=== PATIENT | female | born 2000 | race African-American/Black ===

== ENCOUNTER 2022-08-17 19:27 | Emergency (ER) | payer MEDICAID, OTHER, SELFPAY | END 2022-08-17 20:40 | disposition home or self-care (01) | LOC: CSHERS 19:27 | DX: O20.0 Threatened abortion (principal); Z3A.08 8 weeks gestation of pregnancy | CPT/HCPCS: 99283 ==

== ENCOUNTER 2023-02-10 18:13 | Emergency (ER) | payer OTHER ==
[2023-02-10 18:56] LABS: Bilirubin Neg (Negative); Blood, Urine 10 (Negative); Clarity Clear (Clear); Glucose, Urine (Dipstick) Normal (Negative); Ketone, Urine 50 mg/dL (Negative); Leukocyte 500 (Negative); Nitrite Negative (Negative); Protein, Urine (Dipstick) 30 mg/dl (Neg-Trace)
[2023-02-10 18:58] LABS: Pregnancy Test - Urine (BHCG) POSITIVE (Negative); Pregu Control Background? CLEAR/WHITE (CLR/WHITE); Pregu Control Bar Appear? YES (CONTROL BAR)
[2023-02-10 19:04] LABS: RBC/HPF 0-3 HPF (0-3)
[2023-02-10 19:05] LABS: Bacteria/HPF 3+ HPF (None Seen); CAUTI Indications for Culture Pregnancy; Mucous/LPF 4+ LPF (<2+); Urine Culture Reflex Yes Yes
[2023-02-10 20:03] LABS: #Monocytes 0.2 10x3/uL (0.0-1.1); #Neutrophils 4.6 10x3/uL (1.5-8.4); %Basophils 0.2 % (0.0-2.0); %Eosinophils 0.3 % (0.0-6.0); %Monocytes 3.2 % (0.0-10.0); %Neutrophils 69.1 % (40.0-75.0); Hematocrit 29.3 % (34.9-44.5); Hemoglobin 9.1 g/dL (12.0-15.5); Mean Corpuscular HGB CONC 31.1 g/dL (32.0-36.0); Mean Corpuscular Hemoglobin 23.7 pg (27.0-33.0); Mean Corpuscular Volume 76.3 fl (81.6-98.3); Mean Platelet Volume 8.9 fl (7.4-10.4); Platelet Count 419 10x3/uL (150-450); RBC Distribution Width 16.3 % (11.5-14.5); Red Blood Cell (RBC) Count 3.84 10x6/uL (3.90-5.03); White Blood Cell (WBC) Count 6.6 10x3/uL (3.5-10.5)
== END 2023-02-10 22:02 | disposition home or self-care (01) ==
LOC: CSHERS 18:13
DX: O23.42 Unspecified infection of urinary tract in pregnancy, second trimester (principal); O99.012 Anemia complicating pregnancy, second trimester; Z3A.17 17 weeks gestation of pregnancy
CPT/HCPCS: 36415; 76815; 81001; 81025; 85025; 86900; 86901; 87086

== ENCOUNTER 2023-04-23 16:16 | Inpatient (IN) | payer MEDICAID, OTHER, SELFPAY ==
[2023-04-23 16:33] VITALS: BMI 21.7
[2023-04-23] MEDS: Lactated Ringer's 1,000 ML IV SCH ×2 (17:00→18:21)
[2023-04-23] MEDS ORDERED: hydrALAZINE 20 MG/ML VIAL SLOW IVP PRN ×2 (17:20→19:30)
[2023-04-23 17:45] LABS: Bilirubin Neg (Negative); Blood, Urine Negative (Negative); Clarity Slightly Cloudy (Clear); Glucose, Urine (Dipstick) Normal (Negative); Ketone, Urine Negative (Negative); Leukocyte 500 (Negative); Nitrite Negative (Negative); Protein, Urine (Dipstick) 30 mg/dl (Neg-Trace); pH, Urine 6.5 (5.0-9.0)
[2023-04-23 17:50] LABS: #Monocytes 0.2 10x3/uL (0.0-1.1); #Neutrophils 4.5 10x3/uL (1.5-8.4); %Basophils 0.1 % (0.0-2.0); %Eosinophils 0.3 % (0.0-6.0); %Lymphocytes 31.4 % (18.0-47.0); %Neutrophils 64.9 % (40.0-75.0); Hematocrit 27.6 % (34.9-44.5); Hemoglobin 8.2 g/dL (12.0-15.5); Mean Corpuscular HGB CONC 29.7 g/dL (32.0-36.0); Mean Corpuscular Hemoglobin 21.7 pg (27.0-33.0); Mean Platelet Volume 9.3 fl (7.4-10.4); Platelet Count 415 10x3/uL (150-450); RBC Distribution Width 16.3 % (11.5-14.5); Red Blood Cell (RBC) Count 3.78 10x6/uL (3.90-5.03)
[2023-04-23 18:11] LABS: ALT (SGPT) 7 U/L (8-55); AST (SGOT) 16 U/L (5-34); Albumin 3.7 g/dL (3.5-5.0); Alkaline Phosphatase 59 U/L (40-110); Anion Gap 16 mmol/L (10-20); BUN (Urea Nitrogen) 6 mg/dL (7.0-18.7); Bilirubin, Total 0.8 mg/dL (0.2-1.2); Calc. Creatinine Clearance 126 mL/min (70-130); Calcium 8.7 mg/dL (7.8-10.44); Carbon Dioxide 17 mmol/L (22-29); Chloride 107 mmol/L (98-107); Estimated GFR 130; Globulin 3.1 g/dL (2.4-3.5); Glucose 82 mg/dL (70-105); Potassium 3.7 mmol/L (3.5-5.1); Protein, Total 6.8 g/dL (6.0-8.3); Sodium 136 mmol/L (136-145)
[2023-04-23 18:20] LABS: CAUTI Indications for Culture Pregnancy
[2023-04-23 18:23] LABS: Bacteria/HPF 3+ HPF (None Seen); Mucous/LPF 3+ LPF (<2+)
[2023-04-23 18:25] LABS: Yeast-Budding 1+ HPF (None Seen); Yeast-Hyphae Rare HPF (None Seen)
[2023-04-23 18:27] LABS: Urine Culture Reflex Yes Yes
[2023-04-23] MEDS ORDERED: cefTRIAXone\\ROCEPHIN 1 GM in Sodium Chloride 0.9% 100 ML IVPB SCH (19:00)
[2023-04-23 19:13] LABS: Fetal Membranes Rupture RUPTURE DETECTED (No Rupture)
[2023-04-23] MEDS ORDERED: Oxytocin 30 units/NS 500 ML 500 ML IV SCH (19:30)
[2023-04-23] MEDS ORDERED: Promethazine HCl 25 MG/ML VIAL IM PRN (19:30)
[2023-04-23] MEDS ORDERED: Azithromycin 250 MG TAB PO SCH (19:45)
[2023-04-23] MEDS ORDERED: Betamet Acet/Betamet Na Ph 30 MG/5 ML VIAL IM SCH (19:45)
[2023-04-23] MEDS: Ampicillin 2 GM in Sodium Chloride 0.9% 100 ML IVPB SCH (19:46)
[2023-04-23] MEDS ORDERED: Magnesium Sulfate 20 gm/500 ml 20 GM/500 ML BAG IVPB SCH (20:15)
[2023-04-23 20:30] LABS: Syphilis Antibody Nonreactive (Nonreactive); Syphilis Antibody Index 0.07 S/CO (<1.00 Non-Reactive)
[2023-04-23 20:33] LABS: HBSAg Index 0.18 S/CO (0-0.99); Hep B Surf Ag - L&D Non-Reactive S/CO (NonReactive)
[2023-04-23 20:54] LABS: #Monocytes 0.2 10x3/uL (0.0-1.1); #Neutrophils 5.2 10x3/uL (1.5-8.4); %Basophils 0.1 % (0.0-2.0); %Eosinophils 0.1 % (0.0-6.0); %Monocytes 2.9 % (0.0-10.0); %Neutrophils 68.6 % (40.0-75.0); Hematocrit 26.5 % (34.9-44.5); Hemoglobin 7.8 g/dL (12.0-15.5); Mean Corpuscular HGB CONC 29.4 g/dL (32.0-36.0); Mean Corpuscular Hemoglobin 21.8 pg (27.0-33.0); Mean Corpuscular Volume 74.2 fl (81.6-98.3); Platelet Count 374 10x3/uL (150-450); RBC Distribution Width 16.3 % (11.5-14.5); Red Blood Cell (RBC) Count 3.57 10x6/uL (3.90-5.03); White Blood Cell (WBC) Count 7.6 10x3/uL (3.5-10.5)
[2023-04-24] MEDS: Ampicillin 2 GM in Sodium Chloride 0.9% 100 ML IVPB SCH ×4 (01:39→19:46)
[2023-04-24] MEDS ORDERED: Fluconazole 100 MG TAB PO SCH ×2 (08:00→14:00)
[2023-04-24 12:09] LABS: Fetal Membranes Rupture RUPTURE DETECTED (No Rupture)
[2023-04-24 14:03] LABS: Chlamydia by PCR, Vaginal Swab Not Detected (NotDetected); GC by PCR, Vaginal Swab Not Detected (NotDetected); Tric.vaginalis PCR,Vaginal Sw Not Detected (NotDetected)
[2023-04-24] MEDS: Lactated Ringer's 1,000 ML IV SCH ×2 (15:21→21:15)
[2023-04-24] MEDS: Ferrous Sulfate 325 MG TAB PO SCH ×2 (15:21→16:56)
[2023-04-24] MEDS ORDERED: Cyclobenzaprine 10 MG TAB PO SCH (19:00)
[2023-04-24] MEDS ORDERED: Betamet Acet/Betamet Na Ph 30 MG/5 ML VIAL IM SCH (20:00)
[2023-04-25] MEDS ORDERED: fentaNYL 50 mcg/mL 1 mL Vial SLOW IVP PRN (00:10)
[2023-04-25] MEDS: fentaNYL 50 mcg/mL 1 mL Vial SLOW IVP PRN ×2 (00:54→18:01)
[2023-04-25] MEDS: Ampicillin 2 GM in Sodium Chloride 0.9% 100 ML IVPB SCH ×4 (03:17→23:06)
[2023-04-25] MEDS: Ferrous Gluconate 324 MG TAB PO SCH (09:35)
[2023-04-25] MEDS: Lactated Ringer's 1,000 ML IV SCH (09:36)
[2023-04-25] MEDS ORDERED: Ampicillin 2 GM VIAL ONE (22:57)
[2023-04-26] MEDS ORDERED: fentaNYL/Ropivacaine Epidural 100 ML ONE (07:31)
[2023-04-26] MEDS: AMOXicillin 250 MG CAP PO SCH (18:21)
[2023-04-26] MEDS: Ferrous Gluconate 324 MG TAB PO SCH (21:37)
[2023-04-27] MEDS: AMOXicillin 250 MG CAP PO SCH ×5 (02:22→21:24)
[2023-04-27] MEDS: Ferrous Gluconate 324 MG TAB PO SCH ×3 (07:11→21:24)
[2023-04-27] MEDS: Lactated Ringer's 1,000 ML IV SCH (07:11)
[2023-04-28] MEDS: AMOXicillin 250 MG CAP PO SCH ×3 (09:27→21:12)
[2023-04-28] MEDS: Ferrous Gluconate 324 MG TAB PO SCH ×2 (09:27→21:12)
[2023-04-29] MEDS: Ferrous Gluconate 324 MG TAB PO SCH ×2 (09:22→20:36)
[2023-04-29] MEDS: AMOXicillin 250 MG CAP PO SCH ×3 (09:22→20:36)
[2023-04-29] MEDS ORDERED: Lactated Ringer's 1,000 ML IV SCH (18:15)
[2023-04-29 18:47] LABS: #Eosinphils 0.1 10x3/uL (0.0-0.5); #Monocytes 0.6 10x3/uL (0.0-1.1); #Neutrophils 8.8 10x3/uL (1.5-8.4); %Basophils 0.2 % (0.0-2.0); %Eosinophils 0.4 % (0.0-6.0); %Lymphocytes 24.6 % (18.0-47.0); %Monocytes 4.6 % (0.0-10.0); %Neutrophils 68.4 % (40.0-75.0); Hematocrit 27.4 % (34.9-44.5); Mean Corpuscular HGB CONC 29.2 g/dL (32.0-36.0); Mean Corpuscular Hemoglobin 21.6 pg (27.0-33.0); Mean Corpuscular Volume 73.9 fl (81.6-98.3); Mean Platelet Volume 9.2 fl (7.4-10.4); Platelet Count 351 10x3/uL (150-450); RBC Distribution Width 17.3 % (11.5-14.5); Red Blood Cell (RBC) Count 3.71 10x6/uL (3.90-5.03); White Blood Cell (WBC) Count 12.8 10x3/uL (3.5-10.5)
[2023-04-29 18:48] LABS: ALT (SGPT) Less than 7 U/L (8-55); AST (SGOT) 12 U/L (5-34); Albumin 3.2 g/dL (3.5-5.0); Alkaline Phosphatase 52 U/L (40-110); Anion Gap 14 mmol/L (10-20); BUN (Urea Nitrogen) 6 mg/dL (7.0-18.7); Bilirubin, Total 0.6 mg/dL (0.2-1.2); Calc. Creatinine Clearance 143 mL/min (70-130); Calcium 8.4 mg/dL (7.8-10.44); Carbon Dioxide 20 mmol/L (22-29); Chloride 103 mmol/L (98-107); Estimated GFR 134; Glucose 98 mg/dL (70-105); Potassium 3.2 mmol/L (3.5-5.1); Protein, Total 6.2 g/dL (6.0-8.3); Sodium 134 mmol/L (136-145)
[2023-04-29] MEDS ORDERED: Potassium Chloride 20 MEQ TAB PO SCH (20:00)
[2023-04-30 04:34] LABS: Anion Gap 14 mmol/L (10-20); BUN (Urea Nitrogen) 4 mg/dL (7.0-18.7); Calc. Creatinine Clearance 140 mL/min (70-130); Calcium 8.6 mg/dL (7.8-10.44); Carbon Dioxide 19 mmol/L (22-29); Chloride 107 mmol/L (98-107); Estimated GFR 133; Glucose 86 mg/dL (70-105); Sodium 136 mmol/L (136-145)
[2023-04-30] MEDS: Ferrous Gluconate 324 MG TAB PO SCH ×2 (09:18→22:33)
[2023-04-30] MEDS: AMOXicillin 250 MG CAP PO SCH ×3 (09:18→22:33)
[2023-05-01] MEDS ORDERED: AMOXicillin 250 MG CAP PO SCH ×2 (08:00→09:00)
[2023-05-01] MEDS: Ferrous Gluconate 324 MG TAB PO SCH ×2 (10:13→22:56)
[2023-05-02] MEDS ORDERED: Acetaminophen 325 MG TAB PO PRN (02:02)
[2023-05-02] MEDS: Cyclobenzaprine 10 MG TAB PO PRN (02:05)
[2023-05-02] MEDS: Ferrous Gluconate 324 MG TAB PO SCH ×2 (09:52→21:38)
[2023-05-03] MEDS: Ferrous Gluconate 324 MG TAB PO SCH ×2 (08:26→22:45)
[2023-05-03] MEDS ORDERED: Docusate Calcium (SURFAK) 240 MG CAP PO PRN (14:21)
[2023-05-03] MEDS: Docusate 100 MG CAP PO PRN (15:03)
[2023-05-04 08:05] LABS: #Monocytes 0.5 10x3/uL (0.0-1.1); %Basophils 0.1 % (0.0-2.0); %Eosinophils 0.2 % (0.0-6.0); %Lymphocytes 22.8 % (18.0-47.0); %Monocytes 3.6 % (0.0-10.0); %Neutrophils 72.3 % (40.0-75.0); Hematocrit 27.8 % (34.9-44.5); Hemoglobin 8.1 g/dL (12.0-15.5); Mean Corpuscular HGB CONC 29.1 g/dL (32.0-36.0); Mean Corpuscular Volume 75.5 fl (81.6-98.3); Mean Platelet Volume 9.5 fl (7.4-10.4); Platelet Count 307 10x3/uL (150-450); RBC Distribution Width 19.3 % (11.5-14.5); Red Blood Cell (RBC) Count 3.68 10x6/uL (3.90-5.03); White Blood Cell (WBC) Count 12.4 10x3/uL (3.5-10.5)
[2023-05-04 08:30] LABS: ALT (SGPT) Less than 7 U/L (8-55); AST (SGOT) 15 U/L (5-34); Albumin 3.1 g/dL (3.5-5.0); Alkaline Phosphatase 53 U/L (40-110); Anion Gap 14 mmol/L (10-20); BUN (Urea Nitrogen) 8 mg/dL (7.0-18.7); Bilirubin, Total 0.6 mg/dL (0.2-1.2); Calc. Creatinine Clearance 138 mL/min (70-130); Calcium 8.5 mg/dL (7.8-10.44); Carbon Dioxide 20 mmol/L (22-29); Chloride 105 mmol/L (98-107); Estimated GFR 133; Globulin 3.1 g/dL (2.4-3.5); Glucose 82 mg/dL (70-105); Protein, Total 6.2 g/dL (6.0-8.3); Sodium 135 mmol/L (136-145)
[2023-05-04] MEDS: Ferrous Gluconate 324 MG TAB PO SCH ×2 (09:00→20:09)
[2023-05-04 22:11] LABS: Hemoglobin A1c 4.8 % (4.0-6.0)
[2023-05-05] MEDS: Docusate 100 MG CAP PO PRN (10:25)
[2023-05-05] MEDS: Ferrous Gluconate 324 MG TAB PO SCH ×2 (10:25→21:24)
[2023-05-06] MEDS: Acetaminophen 500 MG TAB PO PRN ×2 (00:12→22:42)
[2023-05-06] MEDS ORDERED: Lactated Ringer's 1,000 ML IV SCH (00:30)
[2023-05-06 04:33] LABS: #Monocytes 0.3 10x3/uL (0.0-1.1); #Neutrophils 6.8 10x3/uL (1.5-8.4); %Basophils 0.1 % (0.0-2.0); %Eosinophils 0.2 % (0.0-6.0); %Lymphocytes 24.2 % (18.0-47.0); %Monocytes 3.6 % (0.0-10.0); %Neutrophils 71.3 % (40.0-75.0); Hematocrit 24.8 % (34.9-44.5); Hemoglobin 7.6 g/dL (12.0-15.5); Mean Corpuscular HGB CONC 30.6 g/dL (32.0-36.0); Mean Corpuscular Hemoglobin 23.4 pg (27.0-33.0); Mean Corpuscular Volume 76.3 fl (81.6-98.3); Mean Platelet Volume 9.8 fl (7.4-10.4); Platelet Count 293 10x3/uL (150-450); RBC Distribution Width 20.2 % (11.5-14.5); Red Blood Cell (RBC) Count 3.25 10x6/uL (3.90-5.03); White Blood Cell (WBC) Count 9.6 10x3/uL (3.5-10.5)
[2023-05-06] MEDS: Ferrous Gluconate 324 MG TAB PO SCH ×2 (08:35→21:56)
[2023-05-06] MEDS: Cyclobenzaprine 10 MG TAB PO PRN (22:42)
[2023-05-07] MEDS ORDERED: Fluconazole 100 MG TAB PO SCH (07:00)
[2023-05-07 07:13] LABS: Hemoglobin A2 2.1 % (1.8-3.2); Hemoglobin F 0 % (0.0-2.0)
[2023-05-07] MEDS: Ferrous Gluconate 324 MG TAB PO SCH ×2 (08:00→21:39)
[2023-05-07 16:42] LABS: Group B Streptococcus by PCR Not Detected (NotDetected)
[2023-05-08] MEDS: Ferrous Gluconate 324 MG TAB PO SCH ×2 (09:05→21:38)
[2023-05-09] MEDS: Ferrous Gluconate 324 MG TAB PO SCH ×2 (17:55→21:55)
[2023-05-10] MEDS: Ferrous Gluconate 324 MG TAB PO SCH ×2 (13:10→21:20)
[2023-05-11] MEDS: Docusate 100 MG CAP PO PRN (09:21)
[2023-05-11] MEDS: Ferrous Gluconate 324 MG TAB PO SCH ×2 (09:21→21:38)
[2023-05-12] MEDS: Betamet Acet/Betamet Na Ph 30 MG/5 ML VIAL IM SCH (09:53)
[2023-05-12] MEDS: Ferrous Gluconate 324 MG TAB PO SCH ×2 (09:54→21:33)
[2023-05-12] MEDS: Iron Sucrose Complex 200 MG in Sodium Chloride 0.9% 100 ML IVPB SCH (09:54)
[2023-05-13] MEDS ORDERED: Betamet Acet/Betamet Na Ph 30 MG/5 ML VIAL IM SCH (09:15)
[2023-05-13] MEDS: Iron Sucrose Complex 200 MG in Sodium Chloride 0.9% 100 ML IVPB SCH (09:19)
[2023-05-13] MEDS: Betamet Acet/Betamet Na Ph 30 MG/5 ML VIAL IM SCH (10:23)
[2023-05-13] MEDS: Ferrous Gluconate 324 MG TAB PO SCH ×2 (10:37→22:22)
[2023-05-14] MEDS: Cyclobenzaprine 10 MG TAB PO PRN (01:14)
[2023-05-14] MEDS: Acetaminophen 500 MG TAB PO PRN ×2 (01:15→19:17)
[2023-05-14] MEDS: Iron Sucrose Complex 200 MG in Sodium Chloride 0.9% 100 ML IVPB SCH (10:17)
[2023-05-14] MEDS: Ferrous Gluconate 324 MG TAB PO SCH ×2 (10:24→19:17)
[2023-05-14 10:26] LABS: #Monocytes 0.6 10x3/uL (0.0-1.1); #Neutrophils 9.4 10x3/uL (1.5-8.4); %Basophils 0.1 % (0.0-2.0); %Lymphocytes 14.9 % (18.0-47.0); %Monocytes 4.8 % (0.0-10.0); %Neutrophils 78.5 % (40.0-75.0); Hematocrit 28.6 % (34.9-44.5); Hemoglobin 8.5 g/dL (12.0-15.5); Mean Corpuscular HGB CONC 29.7 g/dL (32.0-36.0); Mean Corpuscular Hemoglobin 24.1 pg (27.0-33.0); Mean Corpuscular Volume 81.3 fl (81.6-98.3); Mean Platelet Volume 9.7 fl (7.4-10.4); Platelet Count 348 10x3/uL (150-450); RBC Distribution Width 25.7 % (11.5-14.5); Red Blood Cell (RBC) Count 3.52 10x6/uL (3.90-5.03)
[2023-05-14 10:54] LABS: Anisocytosis MODERATE=16-30 cells (100X) (0-5/hpf); Poikilocytosis SLIGHT = 6-15 cells (100X) (0-5/hpf)
[2023-05-14 10:55] LABS: Ovalocytes SLIGHT = 2-5 cells (100X) (0-1/hpf)
[2023-05-14] MEDS: Ondansetron PF 4 MG/2 ML Vial IVP PRN (19:17)
[2023-05-15] MEDS: Ferrous Gluconate 324 MG TAB PO SCH ×2 (11:07→21:29)
[2023-05-16] MEDS: Ferrous Gluconate 324 MG TAB PO SCH ×2 (11:08→21:15)
[2023-05-16] MEDS: Docusate 100 MG CAP PO PRN (11:09)
[2023-05-17] MEDS: Ferrous Gluconate 324 MG TAB PO SCH ×2 (09:10→20:39)
[2023-05-17] MEDS: Ondansetron PF 4 MG/2 ML Vial IVP PRN (19:20)
[2023-05-18] MEDS: Ferrous Gluconate 324 MG TAB PO SCH ×2 (07:53→20:55)
[2023-05-18 15:38] LABS: Hemoglobin A2 2.2 % (1.8-3.2); Hemoglobin F 0 % (0.0-2.0)
[2023-05-19] MEDS: Ferrous Gluconate 324 MG TAB PO SCH ×2 (08:37→21:07)
[2023-05-20] MEDS: Ferrous Gluconate 324 MG TAB PO SCH ×2 (09:10→21:04)
[2023-05-21] MEDS: Ferrous Gluconate 324 MG TAB PO SCH ×2 (09:31→21:48)
[2023-05-21] MEDS: Docusate 100 MG CAP PO PRN (09:31)
[2023-05-22] MEDS: Cyclobenzaprine 10 MG TAB PO PRN (00:45)
[2023-05-22] MEDS: Ferrous Gluconate 324 MG TAB PO SCH ×2 (08:29→22:02)
[2023-05-22 08:46] LABS: #Monocytes 0.3 10x3/uL (0.0-1.1); #Neutrophils 3.4 10x3/uL (1.5-8.4); %Eosinophils 0.2 % (0.0-6.0); %Lymphocytes 37.9 % (18.0-47.0); %Monocytes 4.2 % (0.0-10.0); %Neutrophils 57.2 % (40.0-75.0); Hematocrit 30.3 % (34.9-44.5); Hemoglobin 9.2 g/dL (12.0-15.5); Mean Corpuscular HGB CONC 30.4 g/dL (32.0-36.0); Mean Corpuscular Hemoglobin 25.4 pg (27.0-33.0); Mean Corpuscular Volume 83.7 fl (81.6-98.3); Mean Platelet Volume 9.3 fl (7.4-10.4); Platelet Count 279 10x3/uL (150-450); RBC Distribution Width 28.2 % (11.5-14.5); Red Blood Cell (RBC) Count 3.62 10x6/uL (3.90-5.03)
[2023-05-22 09:14] LABS: Anisocytosis SLIGHT = 6-15 cells (100X) (0-5/hpf); Hypochromia SLIGHT = 6-15 cells (100X) (0-5/hpf); Poikilocytosis SLIGHT = 6-15 cells (100X) (0-5/hpf)
[2023-05-22 09:15] LABS: Platelet Adequacy Comment Appears Adequate
[2023-05-23] MEDS: Ferrous Gluconate 324 MG TAB PO SCH (10:31)
[2023-05-23 12:20] VITALS: TEMP 98.3
[2023-05-23 15:39] VITALS: BP 101/68
== END 2023-05-23 20:45 | disposition left against medical advice (07) | DRG 832 ==
LOC: CSHLD/OP 16:16 → CSHLD 19:30 → EEVIPCON 19:30 → CSHANTE 04-24 14:50 → CSHLD 04-25 03:11 → CSHANTE 04-26 21:45
PROVIDERS: ADMIT Obstetrics & Gynecology; ATTEND Obstetrics & Gynecology
DX: O42.90 Premature rupture of membranes, unspecified as to length of time between rupture and onset of labor, unspecified weeks of gestation (principal); N39.0 Urinary tract infection, site not specified; O23.42 Unspecified infection of urinary tract in pregnancy, second trimester; O98.812 Other maternal infectious and parasitic diseases complicating pregnancy, second trimester; Z3A.27 27 weeks gestation of pregnancy; O99.012 Anemia complicating pregnancy, second trimester; O32.1XX0 Maternal care for breech presentation, not applicable or unspecified; O99.891 Other specified diseases and conditions complicating pregnancy; R00.0 Tachycardia, unspecified; O99.282 Endocrine, nutritional and metabolic diseases complicating pregnancy, second trimester; E87.6 Hypokalemia; B37.31 Acute candidiasis of vulva and vagina
CPT/HCPCS: 36415; 71045; 76815; 76816; 76819; 80048; 80053; 81001; 82950; 83021; 83036; 84112; 85025; 86780; 86850; 86900; 86901; 87086; 87340; 87480; 87491; 87510; 87591; 87653; 87660; 87661; 93005; 93010; 99285; J0290; J0696; J0702; J1650; J1756; J2405; J3010; J3475; J3490; J7120

== ENCOUNTER 2023-06-02 15:43 | Day surgery (SDC) | payer MEDICAID, SELFPAY ==
[2023-06-02 16:29] VITALS: BMI 22.1
[2023-06-02] MEDS ORDERED: hydrALAZINE 20 MG/ML VIAL SLOW IVP PRN ×2 (16:59→19:06)
[2023-06-02 17:45] LABS: Fetal Membranes Rupture No Membranes Rupture (No Rupture)
[2023-06-02] MEDS ORDERED: Acetaminophen 500 MG TAB PO PRN ×2 (19:05→19:19)
[2023-06-02] MEDS ORDERED: Ondansetron PF 4 MG/2 ML Vial IVP PRN (19:06)
[2023-06-02] MEDS ORDERED: Promethazine HCl 25 MG/ML VIAL IM PRN (19:06)
[2023-06-02] MEDS ORDERED: Oxytocin 30 units/NS 500 ML 500 ML IV SCH (19:15)
[2023-06-02] MEDS ORDERED: Lactated Ringer's 1,000 ML IV SCH (19:15)
[2023-06-02 19:42] LABS: Hematocrit 35.2 % (34.9-44.5); Hemoglobin 11.3 g/dL (12.0-15.5); Mean Corpuscular HGB CONC 32.1 g/dL (32.0-36.0); Mean Corpuscular Hemoglobin 27.2 pg (27.0-33.0); Mean Corpuscular Volume 84.8 fl (81.6-98.3); Mean Platelet Volume 9.6 fl (7.4-10.4); Platelet Count 273 10x3/uL (150-450); Red Blood Cell (RBC) Count 4.15 10x6/uL (3.90-5.03); White Blood Cell (WBC) Count 8.4 10x3/uL (3.5-10.5)
[2023-06-02 19:56] LABS: HBSAg Index 0.16 S/CO (0-0.99); Hep B Surf Ag - L&D Non-Reactive S/CO (NonReactive)
[2023-06-02 19:58] LABS: Syphilis Antibody Nonreactive (Nonreactive); Syphilis Antibody Index 0.04 S/CO (<1.00 Non-Reactive)
[2023-06-02] MEDS: metroNIDAZOLE 500 MG TAB PO SCH (20:02)
[2023-06-03] MEDS: metroNIDAZOLE 500 MG TAB PO SCH (12:02)
[2023-06-03 14:19] LABS: Chlamydia by PCR, Vaginal Swab Not Detected (NotDetected); GC by PCR, Vaginal Swab Not Detected (NotDetected)
[2023-06-03] MEDS ORDERED: Clotrimazole 2% 3 Day Vag Cr 22.2 GM TUBE VAG SCH (21:00)
== END 2023-06-03 12:10 | disposition home or self-care (01) ==
LOC: CSHLD/OP 15:43
PROVIDERS: ATTEND Emergency Medicine
DX: O09.93 Supervision of high risk pregnancy, unspecified, third trimester (principal); O42.113 Preterm premature rupture of membranes, onset of labor more than 24 hours following rupture, third trimester; R82.71 Bacteriuria; O09.33 Supervision of pregnancy with insufficient antenatal care, third trimester; O99.013 Anemia complicating pregnancy, third trimester; D50.9 Iron deficiency anemia, unspecified; O98.813 Other maternal infectious and parasitic diseases complicating pregnancy, third trimester; B37.31 Acute candidiasis of vulva and vagina; Z3A.32 32 weeks gestation of pregnancy; Z79.899 Other long term (current) drug therapy
CPT/HCPCS: 76817; 76819; 84112; 85027; 86780; 86850; 86900; 86901; 87340; 87480; 87491; 87510; 87591; 87660

== ENCOUNTER 2023-06-03 19:58 | Day surgery (SDC) | payer MEDICAID ==
[2023-06-03 20:19] VITALS: BMI 22.1
[2023-06-03] MEDS ORDERED: Promethazine HCl 25 MG/ML VIAL IM PRN (20:58)
[2023-06-03] MEDS ORDERED: Ondansetron PF 4 MG/2 ML Vial IVP PRN (20:58)
[2023-06-03] MEDS ORDERED: hydrALAZINE 20 MG/ML VIAL SLOW IVP PRN (20:58)
[2023-06-03] MEDS ORDERED: Oxytocin 30 units/NS 500 ML 500 ML IV SCH (21:00)
[2023-06-03] MEDS ORDERED: metroNIDAZOLE 500 MG TAB PO SCH (22:00)
[2023-06-03] MEDS ORDERED: Clotrimazole 2% 3 Day Vag Cr 22.2 GM TUBE VAG SCH (22:00)
[2023-06-04] MEDS ORDERED: Clotrimazole 2% 3 Day Vag Cr 22.2 GM TUBE VAG SCH (21:00)
== END 2023-06-03 23:55 | disposition home or self-care (01) ==
LOC: CSHLD/OP 19:58
PROVIDERS: ATTEND Student in an Organized Health Care Education/Training Program
DX: O46.93 Antepartum hemorrhage, unspecified, third trimester (principal); O98.813 Other maternal infectious and parasitic diseases complicating pregnancy, third trimester; B37.31 Acute candidiasis of vulva and vagina; O09.33 Supervision of pregnancy with insufficient antenatal care, third trimester; O99.013 Anemia complicating pregnancy, third trimester; D50.9 Iron deficiency anemia, unspecified; Z3A.32 32 weeks gestation of pregnancy; Z79.899 Other long term (current) drug therapy

== ENCOUNTER 2023-06-30 00:06 | Inpatient (IN) | payer MEDICAID, OTHER ==
[2023-06-30 00:22] VITALS: BMI 23.3
[2023-06-30] MEDS ORDERED: hydrALAZINE 20 MG/ML VIAL SLOW IVP PRN ×3 (01:00→17:18)
[2023-06-30 01:34] LABS: Bilirubin Neg (Negative); Blood, Urine Negative (Negative); Clarity Clear (Clear); Glucose, Urine (Dipstick) Normal (Negative); Ketone, Urine 5 mg/dL (Negative); Leukocyte 25 (Negative); Nitrite Negative (Negative); Protein, Urine (Dipstick) 30 mg/dl (Neg-Trace); Specific Gravity, Urine 1.025 (1.005-1.030); Urobilinogen Normal mg/dL (Less than 2)
[2023-06-30] MEDS: Lactated Ringer's 1,000 ML IV SCH ×5 (01:35→06:58)
[2023-06-30 01:49] LABS: CAUTI Indications for Culture Pregnancy; RBC/HPF None Seen HPF (0-3); WBC/HPF 0-3 HPF (0-3)
[2023-06-30 01:50] LABS: Bacteria/HPF Rare-Few HPF (None Seen); Squamous Epithelial 0-3 HPF (0-3)
[2023-06-30 01:51] LABS: Urine Culture Reflex Yes Yes
[2023-06-30 02:03] LABS: Anion Gap 14 mmol/L (10-20); BUN (Urea Nitrogen) 6 mg/dL (7.0-18.7); Calc. Creatinine Clearance 136 mL/min (70-130); Calcium 8.8 mg/dL (7.8-10.44); Carbon Dioxide 19 mmol/L (22-29); Chloride 106 mmol/L (98-107); Estimated GFR 130; Glucose 88 mg/dL (70-105); Potassium 3.6 mmol/L (3.5-5.1); Sodium 135 mmol/L (136-145)
[2023-06-30] MEDS ORDERED: Misoprostol 200 MCG TAB PR PRN (04:50)
[2023-06-30] MEDS ORDERED: Methylergonovine 0.2 MG/ML VIAL IM PRN (04:50)
[2023-06-30] MEDS ORDERED: Lidocaine 1% (PF) 30 ML VIAL SC PRN (04:50)
[2023-06-30] MEDS ORDERED: fentaNYL 50 mcg/mL 1 mL Vial SLOW IVP PRN (04:50)
[2023-06-30] MEDS ORDERED: Promethazine HCl 25 MG/ML VIAL IM PRN ×2 (04:50→05:57)
[2023-06-30] MEDS ORDERED: Penicillin G Potassium 5 MILL.UNITS in Sodium Chloride 0.9% 100 ML IVPB SCH (04:50)
[2023-06-30] MEDS ORDERED: Ondansetron PF 4 MG/2 ML Vial IVP PRN ×2 (04:50→05:57)
[2023-06-30] MEDS ORDERED: Tranexamic Acid 1,000 MG/10 ML VIAL IVP PRN (04:50)
[2023-06-30] MEDS ORDERED: Ibuprofen 800 MG TAB PO PRN (04:50)
[2023-06-30] MEDS ORDERED: Acetaminophen 500 MG TAB PO PRN (04:50)
[2023-06-30] MEDS ORDERED: fentaNYL/Ropivacaine Epidural 100 ML ONE (05:05)
[2023-06-30 05:24] LABS: Hematocrit 33.4 % (34.9-44.5); Hemoglobin 10.9 g/dL (12.0-15.5); Mean Corpuscular HGB CONC 32.6 g/dL (32.0-36.0); Mean Corpuscular Hemoglobin 27.9 pg (27.0-33.0); Mean Corpuscular Volume 85.4 fl (81.6-98.3); Mean Platelet Volume 9.6 fl (7.4-10.4); Platelet Count 257 10x3/uL (150-450); Red Blood Cell (RBC) Count 3.91 10x6/uL (3.90-5.03); White Blood Cell (WBC) Count 10.9 10x3/uL (3.5-10.5)
[2023-06-30] MEDS ORDERED: Moisturizing Cream (Eucerin) 113 GM JAR TOP PRN (05:57)
[2023-06-30] MEDS ORDERED: diphenhydrAMINE 50 MG/ML VIAL IVP PRN (05:57)
[2023-06-30] MEDS ORDERED: Naloxone HCl 0.4 mg/ml Vial IVP PRN ×2 (05:57)
[2023-06-30] MEDS ORDERED: Acetaminophen 325 MG TAB PO PRN (05:57)
[2023-06-30] MEDS ORDERED: Lactated Ringer's 500 ML IV PRN (05:57)
[2023-06-30] MEDS ORDERED: ePHEDrine Sulfate 50 MG/10 ML VIAL SLOW IVP PRN (05:57)
[2023-06-30 06:00] LABS: Syphilis Antibody Nonreactive (Nonreactive); Syphilis Antibody Index 0.05 S/CO (<1.00 Non-Reactive)
[2023-06-30] MEDS ORDERED: fentaNYL 2 mcg/Ropivacaine 0.2% Epidural 100 ML CADD EPIDURAL SCH (06:00)
[2023-06-30] MEDS ORDERED: Communication Order-Pharmacy FS SCH (06:00)
[2023-06-30 06:01] LABS: HIV (1/2) Antibody/Antigen Non-Reactive (NonReactive); HIV 1/2 INDEX 0.17 S/CO (<1.00); Hep B Surf Ag - L&D Non-Reactive S/CO (NonReactive)
[2023-06-30] MEDS: Penicillin G 2.5 MILL.units 2.5 MILL.UNITS in Premix 1 BAG IVPB SCH ×4 (08:37→21:02)
[2023-06-30] MEDS: Oxytocin 30 units/NS 500 ML 500 ML IV SCH ×3 (11:40→16:05)
[2023-06-30] MEDS ORDERED: Milk Of Magnesia 30 ML UDCUP PO PRN (17:18)
[2023-06-30] MEDS ORDERED: Benzocaine-Menthol 82.5 ML CAN TOP PRN (17:18)
[2023-06-30] MEDS ORDERED: Bisacodyl 10 MG SUPP PR PRN (17:18)
[2023-06-30] MEDS ORDERED: Boostrix 0.5 ML (Tdap) VIAL (>/=7 yrs of age) IM ONE (17:18)
[2023-06-30] MEDS ORDERED: diphenhydrAMINE 25 MG CAP PO PRN (17:18)
[2023-06-30] MEDS ORDERED: Preparation H Ointment 28 GM TUBE PR PRN (17:18)
[2023-06-30] MEDS ORDERED: Lanolin Ointment 7 GM TUBE TOP PRN (17:18)
[2023-06-30] MEDS ORDERED: Ferrous Sulfate 325 MG TAB PO SCH (18:00)
[2023-06-30] MEDS: Docusate 100 MG CAP PO SCH (21:02)
[2023-06-30] MEDS: Ibuprofen 800 MG TAB PO SCH (21:02)
[2023-07-01] MEDS: Penicillin G 2.5 MILL.units 2.5 MILL.UNITS in Premix 1 BAG IVPB SCH ×6 (02:00→19:03)
[2023-07-01] MEDS: Ibuprofen 800 MG TAB PO SCH ×3 (05:08→21:52)
[2023-07-01] MEDS: Prenatal Vitamin 1 TAB PO SCH (08:50)
[2023-07-01] MEDS: Ferrous Sulfate 325 MG TAB PO SCH ×2 (08:50→15:34)
[2023-07-01] MEDS: Docusate 100 MG CAP PO SCH ×2 (08:50→21:51)
[2023-07-01] MEDS ORDERED: Bupivacaine 0.25% HCL 30 ML VIAL ONE (12:00)
[2023-07-02] MEDS: Penicillin G 2.5 MILL.units 2.5 MILL.UNITS in Premix 1 BAG IVPB SCH ×3 (03:31→11:01)
[2023-07-02] MEDS: Ibuprofen 800 MG TAB PO SCH (05:21)
[2023-07-02 07:57] VITALS: BP 98/55; TEMP 98.2
[2023-07-02] MEDS: Docusate 100 MG CAP PO SCH (08:52)
[2023-07-02] MEDS: Prenatal Vitamin 1 TAB PO SCH (08:52)
[2023-07-02] MEDS: Ferrous Sulfate 325 MG TAB PO SCH (11:01)
== END 2023-07-02 13:15 | disposition home or self-care (01) | DRG 807 ==
LOC: CSHLD/OP 00:06 → CSHLD 04:47 → CSHPP 16:55
PROVIDERS: ADMIT Student in an Organized Health Care Education/Training Program; ATTEND Student in an Organized Health Care Education/Training Program
PROC: 10E0XZZ Delivery of Products of Conception, External Approach (ICD-10-PCS; principal; 2023-06-30)
PROC: 0HQ9XZZ Repair Perineum Skin, External Approach (ICD-10-PCS; 2023-06-30)
DX: O99.824 Streptococcus B carrier state complicating childbirth (principal); Z37.0 Single live birth; O42.013 Preterm premature rupture of membranes, onset of labor within 24 hours of rupture, third trimester; Z3A.36 36 weeks gestation of pregnancy; O99.02 Anemia complicating childbirth; D50.9 Iron deficiency anemia, unspecified; O70.0 First degree perineal laceration during delivery
CPT/HCPCS: 36415; 51702; 80048; 81001; 85027; 86780; 86850; 86900; 86901; 87086; 87340; 87389; 88307; 99285; J2210; J2540; J2590; J3490; J7120; S0020